=== PATIENT | female | born 1995 | race African-American/Black ===

== ENCOUNTER 2024-02-04 00:02 | Emergency (ER) | payer OTHER ==
[2024-02-04] MEDS ORDERED: Lidocaine 1% w/Epinephrine 1:100K 20 ML VIAL ONE (00:17)
[2024-02-04] MEDS ORDERED: Boostrix 0.5 ML (Tdap) VIAL (>/=7 yrs of age) ONE (00:18)
== END 2024-02-04 00:46 | disposition home or self-care (01) ==
LOC: ERS 00:02
DX: S51.812A Laceration without foreign body of left forearm, initial encounter (principal); Z23 Encounter for immunization; W25.XXXA Contact with sharp glass, initial encounter
CPT/HCPCS: 12002; 90471; 90715